=== PATIENT | male | born 1995 | race Caucasian/White ===

== ENCOUNTER 2023-03-08 14:33 | Emergency (ER) | payer SELFPAY ==
[2023-03-08] MEDS ORDERED: Diphtheria,Pertussis(Acell),Tetanus Vaccine 0.5 ML Syringe IM ONE (14:56)
[2023-03-08] MEDS ORDERED: ceFAZolin 2 GM in Sodium Chloride 0.9% 50 ML IV ONE (15:41)
[2023-03-08] MEDS ORDERED: Sodium Chloride 0.9% 10 ML Syringe FLUSH PRN (15:42)
== END 2023-03-08 21:17 | disposition home or self-care (01) ==
LOC: JD.ED 14:33
DX: S62.635B Displaced fracture of distal phalanx of left ring finger, initial encounter for open fracture (principal); F17.210 Nicotine dependence, cigarettes, uncomplicated; Z88.0 Allergy status to penicillin; Z79.899 Other long term (current) drug therapy; Z23 Encounter for immunization; W31.2XXA Contact with powered woodworking and forming machines, initial encounter
CPT/HCPCS: 29125; 73140; 90471; 90715; 96365; 99283; J0690; J3490